=== PATIENT | female | born 1955 | race Caucasian/White ===

== ENCOUNTER 2021-05-04 13:21 | Emergency (ER) | payer OTHER, MEDICARE ==
[~2021-05-04] VITALS: Ht 160 cm; Wt 81.5 kg
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
--- NOTE | 2021-05-04 14:01 | EKG ---
[address] [address] Test Date: 2021-05-04 Test Time: 13:46:12 Pat Name: NOBLE LLAMAS Department: Room: Gender: F Manager Location: [facility] : 1955 Requested By: CARLEEN CAMARILLO Order Number: [id number] Reading MD: Measurements Intervals [place] Rate: 72 P: 42 CO: 192 QRS: -24 QRSD: 90 T: 24 QT: 408 QTc: 448 Interpretive Statements SINUS RHYTHM LEFTWARD AXIS OTHERWISE NORMAL ECG RI6.02 No previous ECG available for comparison
--- NOTE | 2021-05-04 14:11 | RAD ---
XR CHEST 1V CLINICAL INDICATIONS: Trauma. Pain. COMPARISON: None available. Findings: Focal eventration or hernia of the right hemidiaphragm is seen. No acute lung infiltrate or pleural effusion or pulmonary edema or lung mass or pneumothorax is seen. The heart size, pulmonary vasculature, mediastinum and both timi are unremarkable. IMPRESSION: No acute lung infiltrate. Focal eventration or hernia of the right hemidiaphragm. Electronically signed by: Markell Tomlinson MD (05/04/2021 2:08 PM) [id number]
[2021-05-04 14:13] LABS: BASO % 1 % (0-3); EOS # 0.1 x10^3/uL (0.0-0.7); EOS % 3 % (0-3); HEMATOCRIT 38.4 % (36.0-47.0); HEMOGLOBIN 12.9 g/dL (12.0-15.5); LYMPH # 1.2 x10^3/uL (1.0-4.8); LYMPH % 24 % (24-48); MEAN CORPUSCULAR HEMOGLOBIN 35 pg (25-35); MEAN CORPUSCULAR HGB CONC 34 g/dL (31-37); MEAN CORPUSCULAR VOLUME 106 fL (79-100); MONO # 0.5 x10^3/uL (0.0-1.1); MONO % 9 % (0-9); NEUT # 3.2 x10^3uL (1.8-7.7); NEUT % 63 % (31-73); PLATELET COUNT 238 x10^3/uL (140-400); RED BLOOD COUNT 3.64 x10^6/uL (3.50-5.40); RED CELL DISTRIBUTION WIDTH 13.4 % (11.5-14.5); WHITE BLOOD COUNT 5.1 x10^3/uL (4.0-11.0)
[2021-05-04 14:23] LABS: CALCIUM 8.9 mg/dL (8.5-10.1); CREATININE 0.9 mg/dL (0.6-1.0); GFR 62.8; POTASSIUM 4.2 mmol/L (3.5-5.1)
--- NOTE | 2021-05-04 14:27 | RAD ---
CT HEAD AND C-SPINE WO Clinical indications: Trauma and head injury. NONCONTRAST HEAD CT Technique: Noncontrast axial cross sectional scanning of the head was performed. PQRS compliance Statement One or more of the following individualized dose reduction techniques were utilized for this study: 1. Automated exposure control 2. Adjustment of the mA and/or kV according to patient size 3. Use of iterative reconstruction technique Findings: No acute intracranial hemorrhage or midline shift or mass-effect or hydrocephalus or extra- axial fluid collection is seen. No focal hypodense area or sulci effacement is seen to indicate an ac [place] lions infarct or edema radiographically. No skull fracture or pneumocephalus is seen. No opacification of the mastoid sinuses or the middle ear cavities or the paranasal sinuses is seen. The maxillary si nuses are not completely seen in this study. IMPRESSION: No acute intracranial abnormality is seen. CT STUDY OF THE CERVICAL SPINE WITHOUT CONTRAST TECHNIQUE: Noncontrast helical CT scanning of the cervical spine was performed. Multiplanar 2-D recon structions were generated. FINDINGS: No acute fracture is evident. There is grade 1 anterolisthesis of C4-5 and C5-6 and C7-T1. Degenerative facet arthropathy is present. No perching of facet joints is seen. Spinous processes are intact. No lytic process or discitis or prevertebral soft tissue swelling is evident. IMPRESSION: No acute fracture. Electronically signed by: Markell Tomlinson MD (05/04/2021 2:25 PM) [id number]
[2021-05-04 14:29] LABS: ALBUMIN 4.2 g/dL (3.4-5.0); ALBUMIN/GLOBULIN RATIO 1.5 (1.0-1.7); TOTAL BILIRUBIN 0.3 mg/dL (0.2-1.0)
[2021-05-04 14:33] LABS: ETHANOL 40 mg/dL (0-10); SALIC < 2.8 mg/dL (2.8-20.0)
[2021-05-04 14:34] LABS: BARBITURATES NEG (NEG); BENZODIAZEPINES NEG (NEG); CANNABINOIDS NEG (NEG); COCAINE NEG (NEG); METHADONE NEG (NEG); OPIATES NEG (NEG); PHENCYCLIDINE NEG (NEG)
[2021-05-04 14:34] LABS: ACETAMIN < 2 mcg/mL (10-30)
[2021-05-04 14:36] LABS: AMPHETAMINE/METHAMPHETAMINE NEG (NEG)
[2021-05-04 14:46] LABS: BACTERIA,URINE 0 /HPF (0-FEW); BILIRUBIN,URINE NEG (NEG); CLARITY,URINE CLEAR; COLOR,URINE YELLOW; GLUCOSE,URINE NEG (NEG); NITRITE,URINE NEG (NEG); RBC,URINE OCC /HPF (0-2); UROBILINOGEN,URINE 0.2 mg/dL (0.2 mg/dL); WBC,URINE 0 /HPF (0-4)
[2021-05-04 14:47] LABS: SQUAMOUS EPITHELIAL CELL,UR MOD /LPF
[2021-05-04 16:16] VITALS: BP 129/84
== END 2021-05-04 16:17 | disposition home or self-care (01) ==
LOC: ER 13:21
DX: Z00.8 Encounter for other general examination (principal); R51.9 Headache, unspecified; I48.91 Unspecified atrial fibrillation; F32.9 Major depressive disorder, single episode, unspecified; Z79.01 Long term (current) use of anticoagulants; V89.2XXA Person injured in unspecified motor-vehicle accident, traffic, initial encounter; Y93.89 Activity, other specified; Y92.89 Other specified places as the place of occurrence of the external cause; Y99.8 Other external cause status
CPT/HCPCS: 36415; 70450; 71045; 72125; 80053; 80307; 80329; 81001; 84484; 85025; 85610; 93005; 99285; G0480

== ENCOUNTER → 2021-05-13 | Outpatient (CLI) | payer OTHER, MEDICARE ==
[2021-05-04 16:16] VITALS: BP 129/84
--- NOTE | 2021-05-13 10:30 | RAD ---
EXAM: 1. Frontal pelvis with two-view left hip. 2. Bilateral knees 3 views. HISTORY: Left hip and bilaterally pain. COMPARISON: None. FINDINGS: No fractures are identified throughout. The joint spaces and alignment of both hips appear maintained. There are tiny osteophytes along the superolateral margin of the left femoral head. There are mild degenerative changes of the lower lumbar spine for patient age. There are also mild degener ative changes at the pubic symphysis. On the right, there is mild lateral compartmental joint space narrowing. The medial compartmental kylee nt space is preserved. There are moderate osteophytes medially and laterally. There is a small joint effusion. Alignment is maintained. On the left, there is mild medial compartmental joint space narrowing. There is irregularity along th e medial femoral condylar articular surface, with 7 mm indented defect. There are moderate osteophyte s medially. There are mild along the lateral compartment. Alignment is maintained. There is a small j oint effusion. IMPRESSION: 1. Minimal left hip osteoarthritis. 2. An articular surface defect along the left medial femoral condyle measures 7 mm. Ongoing close fol low-up is recommended to exclude developing spontaneous osteonecrosis of the knee. 3. Mild to moderate bilateral knee osteoarthritis has a medial compartment predominance on the left i n the lateral compartment predominant on the right. Electronically signed by: Nikky Mccloud MD (05/13/2021 10:28 AM) [id number]
== END ==
LOC: RAD 09:41
PROVIDERS: ATTEND Orthopaedic Surgery
DX: M17.0 Bilateral primary osteoarthritis of knee (principal); M16.12 Unilateral primary osteoarthritis, left hip
CPT/HCPCS: 73502; 73562